=== PATIENT | male | born 1965 | race Caucasian/White ===

== ENCOUNTER 2020-10-21 18:21 | Outpatient (REF) | payer OTHER, SELFPAY ==
[2020-10-22 19:10] LABS: COVID-19 RT-PCR UVMMC Result Negative (Negative)
== END 2020-10-21 18:22 | disposition home or self-care (01) ==
LOC: LBN 18:21
PROVIDERS: PCP Family Medicine; Visit Provider Family Medicine
DX: Z20.822 Contact with and (suspected) exposure to COVID-19 (principal)
CPT/HCPCS: U0003

== ENCOUNTER 2020-12-02 15:03 | Outpatient (REF) | payer OTHER, SELFPAY ==
[2020-12-03 15:49] LABS: COVID-19 RT-PCR UVMMC Result Negative (Negative)
== END 2020-12-02 15:04 | disposition home or self-care (01) ==
LOC: LBN 15:03
PROVIDERS: PCP Family Medicine; Visit Provider Family Medicine
DX: Z20.822 Contact with and (suspected) exposure to COVID-19 (principal)
CPT/HCPCS: U0003

== ENCOUNTER 2020-12-08 21:37 | Outpatient (REF) | payer OTHER, SELFPAY ==
[2020-12-10 17:22] LABS: COVID-19 RT-PCR UVMMC Result Negative (Negative)
== END 2020-12-08 21:38 | disposition home or self-care (01) ==
LOC: LBN 21:37
PROVIDERS: PCP Family Medicine; Visit Provider Physician Assistant
DX: Z20.822 Contact with and (suspected) exposure to COVID-19 (principal)
CPT/HCPCS: U0003

== ENCOUNTER 2021-03-24 16:36 | Outpatient (REF) | payer OTHER, SELFPAY ==
[2021-03-25 22:42] LABS: COVID-19 RT-PCR UVMMC Result Negative (Negative)
== END 2021-03-24 16:37 | disposition home or self-care (01) ==
LOC: LBN 16:36
PROVIDERS: PCP Family Medicine; Visit Provider Nurse Practitioner Family
DX: Z20.822 Contact with and (suspected) exposure to COVID-19 (principal)
CPT/HCPCS: U0003

== ENCOUNTER 2022-04-18 09:48 | Outpatient (CLI) | payer OTHER, SELFPAY ==
[2022-04-18 09:37] LABS: Abs Immature Grans 0.01 10^3/uL (0.0-0.06); Absolute Basophil Count 0.03 10^3/uL (0.0-0.2); Absolute Lymphocyte Count 1.89 10^3/uL (1.2-3.4); Absolute Monocyte Count 0.39 10^3/uL (0.1-0.8); Absolute Neutrophil Count 2.93 10^3/uL (1.2-6.7); Basophils % 0.5; Eosinophils % 8.7; HCT 43.8 % (40.0-50.0); HGB 14.3 g/dL (13.5-17.5); Immature Grans % 0.2; Lymphocytes % 32.9; MCH 29.7 pg (27.0-33.0); MCHC 32.6 % (32.0-36.0); MCV 91 fL (80-95); MPV 9.1 fL (8.0-11.0); Monocytes % 6.8; Neutrophils % 50.9; Platelet Count 260 10^3/uL (130-400); RBC 4.81 10^6/uL (4.36-5.78); RDW 12.9 % (11.8-14.1); RDW-SD 43.2 fL; WBC 5.75 10^3/uL (4.4-10.8)
[2022-04-18 09:55] LABS: ALT 33 U/L (16-63); AST 29 U/L (15-37); Albumin 4.3 g/dL (3.4-5.0); Alkaline Phosphatase 106 U/L (46-116); Anion Gap 7.8 mmol/L (3-11); BUN 25 mg/dL (7-18); Bilirubin, Total 0.7 mg/dL (0.2-1.0); CO2 30.2 mmol/L (21.0-32.0); Calcium 8.9 mg/dL (8.5-10.1); Calculated LDL 102 mg/dL (<100); Chloride 103 mmol/L (98-107); Cholesterol 183 mg/dL (<200); Estimated GFR 87.24 (mL/min/1.73m2); Glucose 92 mg/dL (74-106); HDL Cholesterol 69 mg/dL (40-60); Potassium 4.4 mmol/L (3.5-5.1); Sodium 141 mmol/L (136-145); Total Protein 7.9 g/dL (6.4-8.2); Triglyceride 61 mg/dL (<150)
[2022-04-18 19:13] LABS: PSA, Screening 0.4 ng/mL (<=3.5)
[2022-04-19 10:18] LABS: HIV-1/2 Ag & Ab Screen Negative (Negative)
[2022-04-19 12:25] LABS: Hepatitis C Ab w Rflx HCV PCR Negative (Negative)
== END 2022-04-18 09:49 | disposition home or self-care (01) ==
LOC: LBO 09:50
PROVIDERS: PCP Nurse Practitioner Family; Visit Provider Nurse Practitioner Primary Care
DX: Z13.0 Encounter for screening for diseases of the blood and blood-forming organs and certain disorders involving the immune mechanism (principal); Z13.1 Encounter for screening for diabetes mellitus; Z11.59 Encounter for screening for other viral diseases; Z11.4 Encounter for screening for human immunodeficiency virus [HIV]; Z13.220 Encounter for screening for lipoid disorders; Z12.5 Encounter for screening for malignant neoplasm of prostate
CPT/HCPCS: 36415; 80053; 80061; 84153; 86803; 87389; 85025

== ENCOUNTER 2025-01-31 12:36 | Outpatient (CLI) | payer OTHER, SELFPAY ==
[2025-01-31 11:09] LABS: Hemoglobin A1C 5.3 % (<5.7)
[2025-01-31 11:54] LABS: ALT 43 U/L (16-63); AST 25 U/L (15-37); Albumin 4.3 g/dL (3.4-5.0); Alkaline Phosphatase 93 U/L (46-116); Anion Gap 10.5 mmol/L (3-11); BUN 21 mg/dL (7-18); Bilirubin, Total 0.5 mg/dL (0.2-1.0); CO2 27.5 mmol/L (21.0-32.0); Calcium 9.0 mg/dL (8.5-10.1); Chloride 103 mmol/L (98-107); Cholesterol 165 mg/dL (<200); Glucose 95 mg/dL (74-106); HDL Cholesterol 60 mg/dL (>or=40); Potassium 4.6 mmol/L (3.5-5.1); Sodium 141 mmol/L (136-145); Total Protein 7.3 g/dL (6.4-8.2)
[2025-01-31 21:07] LABS: PSA, Screening 0.4 ng/mL (<=4.5)
[2025-02-08 01:24] LABS: Testosterone, Free 82.2 pg/mL (35.0-155.0)
== END 2025-01-31 12:37 | disposition home or self-care (01) ==
LOC: LBO 12:37
PROVIDERS: PCP Nurse Practitioner Family; Visit Provider Physician Assistant Medical
DX: Z00.00 Encounter for general adult medical examination without abnormal findings (principal); Z13.220 Encounter for screening for lipoid disorders
CPT/HCPCS: 36415; 80053; 80061; 84153; 84402; 84403; 83036